=== PATIENT | male | born 2005 | race Caucasian/White ===

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

== ENCOUNTER 2024-03-19 10:23 | Emergency (ER) | payer OTHER ==
[~2024-03-19] VITALS: Ht 182.9 cm; Wt 110.2 kg
[~2024-03-19 10:23] MED LIST changes: +IBUP-1842 PO
[2024-03-19 10:36] VITALS: BP 131/76; PULSE 81; RESP 18; TEMP 98.1; O2SAT 97
[2024-03-19 11:00] VITALS: BP 133/60; PULSE 88; RESP 20; TEMP 98.3; O2SAT 99
[2024-03-19] MEDS: LIDOCAINE 2% 1000 MG/50 ML VIAL INJ ONE (11:14)
== END 2024-03-19 11:00 | disposition home or self-care (01) ==
LOC: MED 10:23
DX: L60.0 Ingrowing nail (principal); Z79.899 Other long term (current) drug therapy
CPT/HCPCS: 11730; 99284

== ENCOUNTER 2024-06-20 17:49 | Emergency (ER) | payer OTHER ==
[~2024-06-20] VITALS: Ht 182.9 cm; Wt 113.4 kg
[2024-06-20 18:06] VITALS: BP 137/88; PULSE 98; RESP 18; TEMP 98.1; O2SAT 99
[2024-06-20] MEDS ORDERED: NAPR-1704 PO (18:56)
[2024-06-20] MEDS: IBUPROFEN 600 MG TAB PO ONE (18:56)
[2024-06-20] MEDS: ACETAMINOPHEN EXTRA STRENGTH 500 MG TAB PO ONE (18:57)
[2024-06-20 19:21] VITALS: BP 133/82; PULSE 66; RESP 18; TEMP 98.1; O2SAT 99
== END 2024-06-20 19:21 | disposition home or self-care (01) ==
LOC: MED 17:49
DX: S90.112A Contusion of left great toe without damage to nail, initial encounter (principal); L60.0 Ingrowing nail; I10 Essential (primary) hypertension; Z79.1 Long term (current) use of non-steroidal anti-inflammatories (NSAID); Z79.899 Other long term (current) drug therapy; Z88.1 Allergy status to other antibiotic agents; X58.XXXA Exposure to other specified factors, initial encounter; Y93.89 Activity, other specified; Y92.89 Other specified places as the place of occurrence of the external cause; Y99.8 Other external cause status
CPT/HCPCS: 73660; 99283